=== PATIENT | female | born 1925 | race Caucasian/White ===

== ENCOUNTER 2016-03-02 15:45 | Inpatient (IN) | payer OTHER ==
[~2016-03-02] VITALS: Ht 157.5 cm; Wt 60.1 kg
--- NOTE | ~2016-03-02 | HC ---
[facility] [place] [address] CONSULTATION Name: THAIVAN Noble Room #: 429-P ADM IN M.R.#: [id number] Admission: 03/02/16 Attend Phys: Huber Chandra MD Discharge: Date of : [birth year] Report #: [id number] THIS REPORT FOR: //name// CC: Rajan Chandra DATE OF SERVICE: 03/03/2016 HISTORY OF PRESENT ILLNESS: This is an 89-year-old female patient who was seen by me today. I reviewed the records from [facility]. I talked to the patient's daughter and the . 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 They ruled out giant cell arteritis. I did a CTA, but I do not have a full report of that. I do not know whether they did MRI or not. She had another CT scan here that showed the same thing, mainly the right occipital lobe stroke. The patient continued to have trouble with blindness. She does have a history of depression. She is not complaining of any headache or any focal neurological deficit and in fact is walking with the nurse with a walker. 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 She moves both extremities. I discussed the situation with the patient's family, the patient herself. The main management is going to be symptomatic in this patient. I will talk to the , if they want to do the MRI, we can do MRI, but looks like the workup was already done at [facility] and we may not repeat that. I spent more than 25 minutes of [id number] time taking care of this patient and majority of that time was spent counseling the patient's and daughter earlier and the patient now. <ELECTRONICALLY SIGNED> By: Terrence Ny MD 03/06/16 1244 2044 17 Terrence Ny MD /nt
--- NOTE | ~2016-03-02 | EKG ---
[place] [address] [facility] [place] [address] ELECTROCARDIOGRAM REPORT Name: VAN ANDRE Room #: 429-P ADM IN M.R.#: [id number] Admission: 03/02/16 Attend Phys: Huber Chandra MD Discharge: Date of : [birth year] Report #: [id number] THIS REPORT FOR: //name// [facility] ED Test Date: 2016-03-02 Test Time: 16:21:29 Pat Name: VAN ANDRE Department: Room: 429 Gender: F Interactive Project Manager: Clement : 1925 Requested By: Tri Bravo Order Number: [id number] MD: [place]en[place] Measurements Intervals [place] Rate: 80 P: 10 WI: 172 QRS: -23 QRSD: 110 T: 47 QT: 393 QTc: 454 Interpretive Statements Sinus rhythm Ventricular bigeminy Incomplete left bundle branch block Inferior infarct, old No previous ECG available for comparison Electronically Signed On 03-03-2016 11:15:15 REAL ESTATE BROKER ASSOCIATE by Rancho Davenport [email or web address] <ELECTRONICALLY SIGNED> By: Ranch[place] Davenport MD 03/03/16 1115 20 20 Rancho Davenport MD /DINORAH
--- NOTE | ~2016-03-02 | HC ---
[facility] [address] [place] [address] CONSULTATION Name: SIDDHARTHKEVONVAN O Room #: 429-P [facility] IN M.R.#: [id number] Admission: 03/02/16 Attend Phys: Huber Chandra MD Discharge: 03/09/16 Date of : [birth year] Report #: [id number] THIS REPORT FOR: //name// CC: Raajn Chandra DATE OF SERVICE: 03/03/2016 REASON FOR CONSULTATION: Delirium and dementia with behavioral disturbance, depressive disorder. HISTORY OF PRESENT ILLNESS: This is a lady who was admitted with a significant change in mental status. She recently did have a cerebrovascular accident after a period of rehabilitation at [facility], was able to return home. Unfortunately, she has had significant increase in frustration and confusion. In the Emergency Room, she was very agitated. She had recently been started on a combination of tramadol and sertraline. PHYSICAL EXAMINATION: Today, she is alert and calm, but fairly forgetful. She was ruminating over a lot of disconcerting and frustrating events over the recent days including a belief of her needing medical attention a couple of days ago because "he was just sitting down, would not say anything" and some other bizarre events. Per the medical record, she has been hallucinating at times and she has been agitated last night. PAST PSYCHIATRIC HISTORY: She has not had significant treatment by a psychiatrist in the past. A diagnosis of Alzheimer's dementia was made several years ago and she did take Aricept for a period of time, but without overwhelming benefit per her . Does not appear there is an overall history of depression, but she has seemed depressed, hopeless and made passive statements of in the recent days and weeks. She has not had a trial of Namenda. She has had sundowning in the past, and it sounds like she had this even before her stroke, but has never been on atypical antipsychotic. FAMILY HISTORY: Hypertension, cancer. ALLERGIES: No known drug allergies. CURRENT MEDICATIONS: Include Avalide daily, losartan 100 daily, hydrochlorothiazide 12.5 daily, folic acid daily, aspirin 81 daily. PAST MEDICAL HISTORY: Recent cerebrovascular accident where she was treated at . 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 Some improvement in vision in recent weeks, hypertension, laminectomy, breast cancer, arthritis, peptic ulcer disease. [facility] [address] [place] [address] CONSULTATION Name: VAN ANDRE Room #: 429-P [facility] IN [facility].#: [id number] Admission: 03/02/16 Attend Phys: Huber Chandra MD Discharge: 03/09/16 Date of : [birth year] Report #: [id number] COGNITIVE EXAMINATION: She is an alert person. She orients to place with cueing and she orients to time in a basic sense. MENTAL STATUS EXAMINATION: female, casually dressed, depressed, anxious, slow rated speech, simple concrete thought process, this time no suicidal or homicidal ideation, no hallucinations or delusions appreciated, but she does reiterate memories of what she experienced when she had been hallucinating and delusional. Insight and judgment limited. DIAGNOSES: AXIS 1: Adjustment disorder, depressed mood, delirium resolving, dementia with behavioral disturbance, Alzheimer's type, also cerebrovascular accident. AXIS II: Deferred. AXIS III: Hypertension, visual impairment. AXIS IV: Severe. AXIS V: 20. RECOMMENDATIONS: 1. Would activate healthcare power of securities attorney. 2. Would not resume sertraline or tramadol at this time. 3. Talk to the patient's about utilizing a medication for sundowning, especially if there is trouble following asleep and significant paranoia or hallucinations in the evening. I explained that there was slight increase in mortality and morbidity and looking at multiple groups of large studies retrospectively. We will start a low dose of Seroquel 12.5 at bedtime, repeat once if needed. Down the road, as she has stable renal function, Namenda more useful, moderate stages of dementia and beyond could be an appropriate intervention. Supportive therapy and education to family. <ELECTRONICALLY SIGNED> By: Peña Bess MD 03/14/16 0857 1449 0143 Peña Bess MD /nt
--- NOTE | ~2016-03-02 | H ---
[facility] [place] [address] [address] [place] [address] HISTORY AND PHYSICAL Name: THAIVAN Noble Room #: 170-1 ADM IN M.R.#: [id number] Admission: 03/02/16 Attend Phys: Huber Chandra MD Discharge: Date of : [birth year] Report #: [id number] THIS REPORT FOR: //name// CC: Rajan Chandra DATE OF SERVICE: 03/02/2016 CHIEF COMPLAINT: Confusion. HISTORY OF PRESENT ILLNESS: The patient is an 89-year-old female with history of hypertension, history of recent CVA at [facility], presented to the Emergency Room because of altered mental status. The patient has history of hypertension and was admitted with blurred vision at [facility] a few weeks ago. She states 5 days and then, she was transferred to a rehab unit. She was recently discharged from the rehabilitation unit. Apparently, she was started on Zoloft a week ago and she has been taking tramadol at home for her shoulder pain. The patient was brought into the Emergency Room because of agitation and confusion. Apparently, she became very frustrated and she has a ____ to come to the ER. Subsequently, EMS evaluated the patient and she was brought into the ER. She has had some low-grade fever. The patient denies any headache. The patient is awake and alert at present and is oriented x 3. She is able to follow simple commands. No sore throat. No cough, expectoration. No nausea, vomiting, abdominal pain. Apparently, she has been hallucinating. The patient did state that she has been crying more over the last few days. PAST MEDICAL HISTORY: Significant for arthritis, breast cancer, lumbar laminectomy, cervical diskectomy, history of hysterectomy, history of hypertension. No history of any diabetes, history of CVA a few weeks ago. No history of any peptic ulcer disease, bleeding disorder. HOME MEDICATIONS: Include Zocor, calcium carbonate, aspirin, Avalide, folic acid, melatonin, simvastatin, tramadol 50 mg q. 6 hours, Zoloft 50 once a day. SOCIAL HISTORY: No smoke, alcohol abuse, or illicit drug abuse. The patient lives with her . ALLERGIES: No known drug allergy. FAMILY HISTORY: Significant for cancer and hypertension. REVIEW OF SYSTEMS: CONSTITUTIONAL: She has had some low grade fever. No recent weight loss or weight gain. EYES: She has had blurred vision, but no change in acute vision over the last 24 hours. [facility] [address] [place] [address] HISTORY AND PHYSICAL Name: VAN ANDRE Room #: 170-1 [facility] IN [facility]#: [id number] Admission: 03/02/16 Attend Phys: Huber Chandra MD Discharge: Date of : [birth year] Report #: [id number] THROAT: Denies any sore throat. CARDIOVASCULAR: No chest pain, dizziness, palpitations. CHEST: No cough, expectoration. GASTROINTESTINAL: No nausea, vomiting, abdominal pain. GENITOURINARY: No dysuria, hematuria. NEUROLOGIC: No focal numbness or weakness of extremities. PSYCHIATRIC: . A 12-point review of system is negative other than the positive and negative dictated in the history of present illness and the review of system. PHYSICAL EXAMINATION: VITAL SIGNS: Blood pressure is 163/84, heart rate of 90 per minute, afebrile. The patient is awake and alert, not in any acute respiratory distress. EYES: Pupils equal, reactive to light. Nonicteric conjunctivae. THROAT: She has a dry oral mucosa. NECK: Supple, no JVD, no bruit, no lymphadenopathy. CARDIOVASCULAR SYSTEM: S1, S2, negative S3, no murmur. LUNGS: Bilateral air entry present. Clear on auscultation. ABDOMEN: Soft, bowel sounds present, no mass, no organomegaly, no tenderness. PERIPHERY: No pedal edema. No calf tenderness. Dorsalis pedis 1+. NEUROLOGICAL: She has blurred vision. No facial asymmetry noted. Pupils equal, reactive to light. Extraocular movements intact. Power is 5/5 in upper and lower extremity. LABORATORY DATA: Reviewed. EKG shows sinus rhythm with left axis deviation, left bundle branch block. No old EKG to compare with. BUN and creatinine are 11.0 and 0.9. Potassium is 2.8. White count is 7.2. Normal hemoglobin, hematocrit and platelets. IMAGING: Chest x-ray showed no acute abnormality. CT of the brain showed moderate atrophy and microvascular disease without acute hemorrhage. ASSESSMENT AND PLAN: 1. Altered mental status, most likely related to medication. She does have a history of underlying dementia and cerebrovascular accident probably exacerbated by medication. We will hold off on tramadol and Zoloft. We will consult Psychiatry and Neurology, will be placed on frequent neuro check. 2. Hypertension. The patient will be continued on present home medication for hypertension. 3. Hypokalemia. Potassium was replaced. She will be placed on replacement protocol. 4. Physical and occupational therapy will be consulted. He will be placed on Lovenox for deep venous thrombosis prophylaxis. 5. History of dementia. [facility] [address] [place] [address] HISTORY AND PHYSICAL Name: VAN ANDRE Room #: 170-1 ADM IN M.R.#: [id number] Admission: 03/02/16 Attend Phys: Huber Chandra MD Discharge: Date of : [birth year] Report #: [id number] 6. History of depression. We will have Psychiatry to reevaluate the patient. Treatment plan has been explained to the patient and the family in detail. <ELECTRONICALLY SIGNED> By: Huber Chandra MD 03/02/16 1813 1709 1800 Huber Chandra MD /nt
--- NOTE | ~2016-03-02 | HC ---
[facility] [place] [address] [place] [address] CONSULTATION Name: THAIVAN Noble Room #: 429-P ADM IN M.R.#: [id number] Admission: 03/02/16 Attend Phys: Huber Chandra MD Discharge: Date of : [birth year] Report #: [id number] THIS REPORT FOR: //name// CC: Rajan Chandra DATE OF CONSULTATION: 03/02/2016. HISTORY OF PRESENT ILLNESS: This is an 89-year-old female patient who is not able to provide any reliable history. I initially got the history from her, but subsequently called the patient's . I had seen this patient once in the office then she has gone to [facility] and she was admitted there. Apparently, she developed blindness. She had a previous occipital lobe stroke. 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 I do not have the official record from [facility], but that is what the tells me. We have asked for the records. The patient was sent to the rehab but one time she was put in Alzheimer unit and that is where she deteriorated and started having a lot of problem. The problem mainly consist of the fact that this patient becomes agitated. She becomes for frustrated, she becomes somewhat confused and those things has caused a lot of problem for them. She did see a neuro-video production intern in [facility] and they thought her vision may spontaneously recovered to some extent and thinks it may be better. Review of systems is from the . She had a previous lumbar laminectomy, she has dementia. She has arthritis. She has disk disease. She has hypertension. This was the relevant 14-point review of system. PAST MEDICAL HISTORY: Positive for what appeared to be ischemic optic neuropathy, but we do not have records from [facility]. I suspect must rule out temporal arteritis. FAMILY HISTORY: Positive for cancer and hypertension. SOCIAL HISTORY: She does not smoke or use any alcohol. PHYSICAL EXAMINATION: NEUROLOGIC: Indicate the patient is alert, responsive. She initially did not know the month and then she corrected and knew the month, but her memory is diminished and her fund of knowledge is diminished. His speech is intact and she is only partly oriented. Cranial nerve examination 2-12 indicate significant visual disturbances, but is otherwise unremarkable. She has a symmetrical strength, sensation and reflexes in all 4 extremities. There is no meningeal sign. There is no carotid bruit. There is no cerebellar sign. Tone is symmetrical. I did not make the patient walk. She is a thinly built individual who does not have any dysmorphic features of eyes, ears and face. Her pulses are somewhat difficult to feel, but she has no edema, cyanosis or jaundice. She has no atrial fibrillation, in fact she has a monitor for them [facility] [address] [place] [address] CONSULTATION Name: VAN ANDRE Noble Room #: 429-P [facility] IN M.R.#: [id number] Admission: 03/02/16 Attend Phys: Huber Chandra MD Discharge: Date of : [birth year] Report #: [id number] and that has not demonstrated any atrial fibrillation either. VITAL SIGNS: Her pulse rate is 86, temperature is 98.6, respirations 18, blood pressure is 133/70. She did have a CT scan of the head, which showed old stroke. She had some labs which showed a hemoglobin of 12.5. IMPRESSION: I suspect this patient has dementia. On top of that, she has blindness now that is decompensating her and I suspect she is developing more psychiatric issues and behavior problems. I think it will be desirable to consult the psychiatry and I did discuss that aspect with the patient's and he wants to do it. RECOMMENDATIONS: 1. Await the record from [facility]. 2. Psychiatry consults. 3. I will do the workup of only the things which has not been done in the past in [facility] on this patient. Thank you very much for this referral. <ELECTRONICALLY SIGNED> By: Terrence Ny MD 03/06/16 1319 2106 0807 Terrence Ny MD /nt
[~2016-03-02 15:45] MED LIST: CALCIUM CARBO1250 MG PO; CIPROFLOXACIN500 M1 PO; DARVOCET-N 1001 EAC1 PO; LOPRESSOR HCT1 EACH; NORCO 5-325 TA1 EACH PO; ZOCOR 20 MG TAB20 M1
[2016-03-02 15:46] VITALS: BP 168/84
[2016-03-02] MEDS ORDERED: LO-DOSE ASPIRIN81 M1 PO (16:03)
[2016-03-02] MEDS ORDERED: AVALIDE 300-121 EACH PO (16:04)
[2016-03-02] MEDS ORDERED: FOLIC ACID 1 MG1 MG PO (16:08)
[2016-03-02 16:09] LABS: ABSOLUTE NEUTROPHILS 4.4 thou/uL (1.4-8.2); BASOPHILS 0.4 % (0.0-2.0); EOSINOPHILS 1.4 % (0.0-3.0); HEMATOCRIT 36.6 % (37.0-47.0); HEMOGLOBIN 12.5 gm/dL (12.0-15.0); LYMPHOCYTES 29.6 % (24.0-44.0); MCH 31.6 pg (26.0-34.0); MCHC 34.2 % (28.0-37.0); MCV 92.6 fL (80.0-100.0); MONOCYTES 9.4 % (1.0-8.0); PLATELET COUNT 243 thou/uL (150-400); POLYS 59.2 % (36.0-66.0); RBC 3.95 mil/uL (4.20-5.00); RDW 12.5 % (10.5-14.5); WBC 7.4 thou/uL (4.0-11.0)
[2016-03-02] MEDS ORDERED: MELATONIN3 MG PO (16:09)
[2016-03-02] MEDS ORDERED: ZOCOR20 MG PO (16:09)
[2016-03-02] MEDS ORDERED: TRAMADOL 50 MG50 MG PO (16:11)
[2016-03-02 16:12] LABS: MANUAL DIFF NO
[2016-03-02] MEDS ORDERED: SERTRALINE HCL50 MG PO (16:12)
[2016-03-02 16:17] LABS: ANION GAP 10 mmol/L (7-16); BUN 11 mg/dL (7-18); CALCIUM 9.4 mg/dL (8.5-10.1); CHLORIDE 102 mmol/L (98-107); CO2 28 mmol/L (21-32); CREATININE 0.9 mg/dL (0.6-1.3); GLUCOSE 107 mg/dL (70-99); SODIUM 140 mmol/L (136-145)
[2016-03-02 16:22] LABS: POTASSIUM 2.8 mmol/L (3.5-5.1)
[2016-03-02 16:30] LABS: TROPONIN-I < 0.04 ng/mL (<0.04-0.07)
[2016-03-02 17:17] LABS: URINE BILIRUBIN NEGATIVE (Negative); URINE BLOOD NEGATIVE (Negative); URINE COLOR YELLOW; URINE GLUCOSE-RANDOM* NEGATIVE (Negative); URINE KETONES TRACE (Negative); URINE NITRITE NEGATIVE (Negative); URINE PROTEIN (DIPSTICK) NEGATIVE (Negative); URINE SPECIFIC GRAVITY <= 1.005 (1.003-1.035); URINE UROBILINOGEN 0.2 E.U./dl (0.2-1.0)
[2016-03-02 18:15] VITALS: BP 145/73
[2016-03-02 18:30] VITALS: BP 131/80
[2016-03-02 20:00] VITALS: BP 133/70
[2016-03-03 00:45] LABS: ABSOLUTE NEUTROPHILS 4.8 thou/uL (1.4-8.2); BASOPHILS 0.4 % (0.0-2.0); EOSINOPHILS 1.8 % (0.0-3.0); HEMATOCRIT 37.4 % (37.0-47.0); HEMOGLOBIN 12.5 gm/dL (12.0-15.0); LYMPHOCYTES 29.7 % (24.0-44.0); MCH 31.6 pg (26.0-34.0); MCHC 33.4 % (28.0-37.0); MCV 94.5 fL (80.0-100.0); MONOCYTES 9.5 % (1.0-8.0); PLATELET COUNT 248 thou/uL (150-400); POLYS 58.6 % (36.0-66.0); RBC 3.96 mil/uL (4.20-5.00); RDW 12.2 % (10.5-14.5); WBC 8.2 thou/uL (4.0-11.0)
[2016-03-03 00:54] LABS: MANUAL DIFF NO
[2016-03-03 01:00] LABS: CALCIUM 8.9 mg/dL (8.5-10.1); CREATININE 0.8 mg/dL (0.6-1.3); MAGNESIUM 1.7 mg/dL (1.8-2.4); POTASSIUM 3.3 mmol/L (3.5-5.1)
[2016-03-03 04:00] VITALS: BP 155/89
[2016-03-03 07:36] VITALS: BP 161/85
[2016-03-03 09:51] LABS: MAGNESIUM 1.6 mg/dL (1.8-2.4); POTASSIUM 3.9 mmol/L (3.5-5.1)
[2016-03-03 12:50] VITALS: BP 151/103
[2016-03-03 15:35] VITALS: BP 145/84
[2016-03-03 20:00] VITALS: BP 130/61
[2016-03-04 04:00] VITALS: BP 104/56
[2016-03-04 09:58] VITALS: BP 116/70
[2016-03-05 04:00] VITALS: BP 128/67
[2016-03-05 04:38] LABS: BASOPHILS 0.4 % (0.0-2.0); EOSINOPHILS 0.1 % (0.0-3.0); HEMATOCRIT 34.5 % (37.0-47.0); MCH 32.4 pg (26.0-34.0); MCHC 34.6 % (28.0-37.0); MCV 93.6 fL (80.0-100.0); MONOCYTES 8.5 % (1.0-8.0); PLATELET COUNT 221 thou/uL (150-400); RBC 3.69 mil/uL (4.20-5.00); RDW 12.8 % (10.5-14.5); WBC 6.5 thou/uL (4.0-11.0)
[2016-03-05 05:03] LABS: MANUAL DIFF NO
[2016-03-05 05:23] LABS: CALCIUM 8.5 mg/dL (8.5-10.1); TOTAL BILIRUBIN 0.3 mg/dL (<0.1-1.0); TOTAL PROTEIN 6.3 g/dL (6.4-8.2)
[2016-03-05 05:34] LABS: POTASSIUM 2.2 mmol/L (3.5-5.1)
[2016-03-05 09:08] VITALS: BP 123/55
[2016-03-05 17:07] LABS: MAGNESIUM 2.2 mg/dL (1.8-2.4); POTASSIUM 2.8 mmol/L (3.5-5.1)
[2016-03-05 20:00] VITALS: BP 156/79
[2016-03-06 04:00] VITALS: BP 182/94
[2016-03-06 06:00] LABS: HEMATOCRIT 38.2 % (37.0-47.0); HEMOGLOBIN 12.6 gm/dL (12.0-15.0); MCH 31.5 pg (26.0-34.0); MCHC 33.1 % (28.0-37.0); MCV 95.1 fL (80.0-100.0); RBC 4.02 mil/uL (4.20-5.00); RDW 12.6 % (10.5-14.5); WBC 7.6 thou/uL (4.0-11.0)
[2016-03-06 06:23] LABS: ALBUMIN 3.4 g/dL (3.4-5.0); CREATININE 0.7 mg/dL (0.6-1.3); MAGNESIUM 2.1 mg/dL (1.8-2.4); POTASSIUM 3.4 mmol/L (3.5-5.1); TOTAL BILIRUBIN 0.3 mg/dL (<0.1-1.0)
[2016-03-06 08:03] VITALS: BP 154/95
[2016-03-06 19:29] VITALS: BP 149/80
[2016-03-07 04:42] VITALS: BP 138/80
[2016-03-07 05:26] LABS: HEMATOCRIT 35.4 % (37.0-47.0); HEMOGLOBIN 11.6 gm/dL (12.0-15.0); MCH 31.4 pg (26.0-34.0); MCHC 32.9 % (28.0-37.0); MCV 95.3 fL (80.0-100.0); RBC 3.71 mil/uL (4.20-5.00); RDW 12.8 % (10.5-14.5)
[2016-03-07 05:49] LABS: CREATININE 0.7 mg/dL (0.6-1.3); MAGNESIUM 1.8 mg/dL (1.8-2.4); POTASSIUM 3.4 mmol/L (3.5-5.1)
[2016-03-07 09:30] VITALS: BP 135/84
[2016-03-07 16:26] VITALS: BP 141/76
[2016-03-07 21:00] VITALS: BP 178/77
[2016-03-08 04:30] VITALS: BP 157/74
[2016-03-08 05:47] LABS: CALCIUM 9.1 mg/dL (8.5-10.1); CREATININE 0.7 mg/dL (0.6-1.3); POTASSIUM 4.1 mmol/L (3.5-5.1)
[2016-03-08 07:50] VITALS: BP 164/86
[2016-03-08 11:24] VITALS: BP 133/69
[2016-03-08 19:56] VITALS: BP 128/66
[2016-03-09 04:09] VITALS: BP 151/76
[2016-03-09 05:53] LABS: HEMATOCRIT 31.9 % (37.0-47.0); HEMOGLOBIN 10.6 gm/dL (12.0-15.0); MCH 31.4 pg (26.0-34.0); MCHC 33.2 % (28.0-37.0); MCV 94.6 fL (80.0-100.0); RBC 3.38 mil/uL (4.20-5.00); RDW 12.6 % (10.5-14.5)
[2016-03-09 06:03] LABS: CALCIUM 8.8 mg/dL (8.5-10.1); CREATININE 0.8 mg/dL (0.6-1.3); POTASSIUM 3.8 mmol/L (3.5-5.1)
[2016-03-09 08:09] VITALS: BP 155/77
[2016-03-09] MEDS ORDERED: COZAAR100 MG PO (12:20)
[2016-03-09] MEDS ORDERED: SEROQUEL 25 MG25 M1 PO (12:20)
[2016-03-09] MEDS ORDERED: CARDIZEM CD120 MG PO (12:20)
[2016-03-09] MEDS ORDERED: RISPERIDONE 00.25 M1 PO (12:23)
== END 2016-03-09 16:30 | DRG 70 ==
LOC: ER 15:45 → 4E 16:37 → EROBS 16:37 → 4E 18:21
PROVIDERS: Emergency Medicine; Hospitalist; Internal Medicine; Nurse Practitioner; Nurse Practitioner Family
DX: G93.41 Metabolic encephalopathy (principal); E43 Unspecified severe protein-calorie malnutrition; E87.1 Hypo-osmolality and hyponatremia; F02.81 Dementia in other diseases classified elsewhere, unspecified severity, with behavioral disturbance; H46.9 Unspecified optic neuritis; G30.9 Alzheimer's disease, unspecified; M19.90 Unspecified osteoarthritis, unspecified site; E87.6 Hypokalemia; H54.0 Blindness, both eyes; I10 Essential (primary) hypertension; H54.7 Unspecified visual loss; Z90.710 Acquired absence of both cervix and uterus; F32.9 Major depressive disorder, single episode, unspecified; R19.7 Diarrhea, unspecified; Z82.49 Family history of ischemic heart disease and other diseases of the circulatory system; M51.36 Other intervertebral disc degeneration, lumbar region; Z85.3 Personal history of malignant neoplasm of breast; Z98.890 Other specified postprocedural states; Z79.899 Other long term (current) drug therapy; Z79.82 Long term (current) use of aspirin; Z80.9 Family history of malignant neoplasm, unspecified
CPT/HCPCS: 10183